=== PATIENT | female | born 1950 | race Caucasian/White ===

== ENCOUNTER 2023-04-19 13:17 | Outpatient (AMB) | payer OTHER, SELFPAY ==
--- NOTE | 2023-04-19 14:42 | MHC.OFFWIV ---
Intake Vital Signs 04/19/23 14:46 BP 118/70 Blood Pressure Location Rt brachial Position Sitting Pulse 70 Pulse Source Pulse Oximeter Pulse Oximetry (%) 97 Oxygen Delivery Method Room Air Intake Visit Reasons: EP Bursitis in hip? Chiro sent (shon) Intake Note: Patient here for inflamed bursitis in the left hip she was advised by her chiropractor to come here and request a anti inflammatory. Patient Tobacco Use Status: Never used Tobacco Allergies No Known Allergies Allergy (Unverified 04/19/23 14:45) Do you need a note to return to daycare/school/sports/work: No HPI HPI Comments History of Present Illness Details 72-year-old female presents with left hip pain. Patient was seen evaluated by chiropractor after some adjustments she is feeling fine. Over the course of the past couple days has been experiencing left hip pain tender to the touch on the side she feels some swelling is present no warmth no fever. She was wondering if she might have a little PFSH Social History Patient Tobacco Use Status: Never used Tobacco Review of Systems Const All systems reviewed & are unremarkable except as noted in HPI and below Reports as per HPI Musc Reports arthralgias and Reports joint swelling Physical Exam Vital Signs: Last Vital Signs Pulse 70 04/19/23 14:46 BP 118/70 04/19/23 14:46 Pulse Ox 97 04/19/23 14:46 Oxygen Delivery Method Room Air 04/19/23 14:46 Const General: cooperative, healthy appearing, no acute distress and alert Extrem Other: Left hip tenderness to palpation over the greater trochanter. Range of motion intact passively. Assessment & Plan Assessment & Plan (1) Bursitis of left hip: Code(s): M70.72 - Other bursitis of hip, left hip Plan 72-year-old female presents with left hip pain. VSs. Exam patient's insulin oriented no acute distress exam notable for tenderness to palpation over greater trochanter of the left hip. Range of motion intact sensation intact patient likely suffering from bursitis. Patient for septic joint given afebrile without erythema warmth. Will prescribe short course of steroids given patient has been taking Aleve without much relief. Discharge instructions, follow up and treatment are discussed with patient in my usual fashion. Alternatives in treatment are also discussed. The patient will return for worsening symptoms or as needed. Advised that any labs/imaging ordered will be followed up on and contact made if further treatment needed. Counseled that patient's condition may require further evaluation and/or treatment. Symptoms of concern for worsening disorder discussed in detail in my customary manner. Patient does verbalize understanding of the plan, there are no apparent barriers to communication. The patient is given the opportunity to ask questions and have them answered to his/her satisfaction Medications: New prednisone 40 mg (2 x 20 mg) PO DAILY 8 tabs 0RF 4 days Coding Level of Care Code Est Pt Level 3 (10446) Diagnoses Bursitis of left hip M70.72
[2023-04-19 14:46] VITALS: BP 118/70; PULSE 70; O2SAT 97
== END 2023-04-19 15:18 | disposition home or self-care (01) ==
PROVIDERS: PCP Nurse Practitioner Family; Visit Provider Physician Assistant
DX: M70.72 Other bursitis of hip, left hip (principal)
CPT/HCPCS: 99213